=== PATIENT | female | born 1970 | race Caucasian/White ===

== ENCOUNTER 2016-10-27 10:44 | Emergency (ER) | payer OTHER ==
[~2016-10-27] VITALS: Ht 165.1 cm; Wt 74.8 kg
[2016-10-27] MEDS ORDERED: CRESTOR10 M1 PO (11:48)
[2016-10-27] MEDS ORDERED: AMLODIPINE BESYL5 M1 PO (11:48)
--- NOTE | 2016-10-27 12:05 | ED EAR COMPLAINT ---
History of Present Illness General Chief Complaint: Ear Complaints Stated Complaint: "MY EAR WAS BLEEDING THIS AM" Source: patient Exam Limitations: no limitations Vital Signs & Intake/Output Vital Signs & Intake/Output Vital Signs Date Time Temp Pulse Resp B/P Pulse O2 O2 Flow FiO2 Ox Delivery Rate 10/27 1405 80 16 118/82 99 Room Air 10/27 1108 97.0 96 20 129/79 98 Room Air Room Air ED Intake and Output 10/28 0000 10/27 1200 Intake Total Output Total Balance Patient 165 lb Weight Allergies Coded Allergies: Penicillins (Intermediate, RASH 10/27/16) Triage Note: PT TO ED WITH C/O "I WOKE UP WITH BLOOD ON MY PILLOW FROM MY LEFT EAR". PT DENIES PAIN, BUT LEFT EAR FEELS FULL/PRESSURE. Triage Nurses Notes Reviewed? yes HPI: MS. SAGE IS A 46 YO F W/ PMH HTN AND HYPERLIPIDEMIA PRESENTING TO ED FOR L EAR BLEEDING. PT WOKE UP THIS AM, NOTED SHE HAD EAR FULLNESS IN THE BATHROOM AND DESCRIBES IT "HAVING WATER IN MY EAR." PATIENT NOTED SOME BLOOD ON HER PILLOW WHICH CAUSED HER TO BE MORE CONCERNED. PATIENT DENIES RECALLING ITCHING HER EAR IN THE MIDDLE OF THE NIGHT. NO FALLS OR TRAUMA THAT SHE CAN RECALL IN THE PAST MONTH. NO RECENT AIR TRAVEL. PT STATES OVER THE PAST WEEK, SHE'S BEEN HAVING NEARLY DAILY HEADACHES, WHICH RESOLVE W/ MOTRIN OR TYLENOL AT NIGHT. PT STATES SHE DOES NOT NORMALLY GET HEADACHES, AND CERTAINLY NOT ON A REGULAR BASIS. NO FEVER, CHILLS, DECREASED HEARING, EAR PAIN, SOB, COUGH, CHANGES IN VISION OR SORE THROAT. NO ABD PAIN, N/V/D, OR DYSURIA. (TALIA PARK,KOSTA) Reconcile Medications Amlodipine Besylate 5 MG TABLET 1 TAB PO DAILY HEART (Reported) Cefdinir 300 MG CAPSULE 1 CAP PO BID EAR PROBLEMS Ciprofloxacin HCl/Dexameth (Ciprodex Otic Suspension) 0.3 %-0.1 % DROPS.SUSP 4 GTT OT BID EAR PROBLEMS Rosuvastatin Calcium (Crestor) (Unknown Strength) TABLET (Unknown Dose) PO DAILY CHOLESTEROL (Reported) (PEARL PARK,NATA Johnson) Past History Travel History Traveled to [place] past 21 day No Medical History Any Pertinent Medical History? see below for history Neurological: migraine EENT: NONE Cardiovascular: hypertension, hyperlipidemia Respiratory: bronchitis Gastrointestinal: NONE Hepatic: NONE Renal: NONE Musculoskeletal: degen joint disease Psychiatric: NONE Endocrine: NONE Blood Disorders: NONE Cancer(s): NONE [employer]/Reproductive: fibroid Surgical History Surgical History: none, non-contributory Psychosocial History What is your primary language Bruneian Tobacco Use: Quit >30 days ago ETOH Use: denies use (SOCIALLY), occasional use Illicit Drug Use: denies illicit drug use Family History Hx Contributory? No (KOSTA MELGAR MD) Review of Systems Review of Systems Constitutional: Reports: no symptoms. EENTM: Reports: ear redness (L EAR BLEEDING). Respiratory: Reports: no symptoms. Cardiovascular: Reports: no symptoms. GI: Reports: no symptoms. Genitourinary: Reports: no symptoms. Musculoskeletal: Reports: no symptoms. Skin: Reports: no symptoms. Neurological/Psychological: Reports: no symptoms. Hematologic/Endocrine: Denies: bruising, bleeding. Immunologic/Allergic: Reports: no symptoms. All Other Systems: Reviewed and Negative (KOSTA MELGAR MD) Physical Exam Physical Exam General Appearance: well developed/nourished, no apparent distress, alert, awake Head: atraumatic, normal appearance Eyes: Bilateral: normal appearance, PERRL, EOMI. Ears: Left: bleeding, other (BULGING HEMORRHAGIC TM). Right: canal normal, Tympanic normal. Nose: normal inspection Mouth/Throat: normal mouth inspection, pharynx normal Neck: normal inspection, supple, full range of motion, trachea midline Cardiovascular/Respiratory: normal breath sounds, normal peripheral pulses, regular rate/rhythm, no respiratory distress Gastrointestinal: SOFT, NONTENDER Rectal: deferred Back: normal inspection, normal range of motion Neurologic/Psych: no motor/sensory deficits, awake, alert, oriented x 3, normal gait, normal mood/affect Skin: intact, normal color, warm/dry (KOSTA MELGAR MD) Progress Differential Diagnoses I considered the following diagnoses in my evaluation of the patient: OTITIS MEDIA HEMORRHAGIC OTITIS [place] INTRACRANIAL MASS CHOLESTEATOMA OTITIS EXTERNA DIRECT TRAUMA Plan of Care: Orders Procedure Date/time Status CT INT AUD CANALS WO IV CONT 10/[address] INT AUD CANALS W&WO IV CONT 10/[address] HEAD WO IV CONTRAST 10/27 1138 Active PATIENT IS OTHERWISE WELL 46 YO F W/ HTN/HLD. ONGOING ALMOST DAILY HEADACHES OVER THE PAST 2 WEEKS, WHICH IS CONCERNING FOR INTRACRANIAL PROCESS GIVEN HER LACK OF HX OF CHING. HEMORRHAGIC BULGING L TM. NO HX OF TRAUMA THAT PATIENT RECALLS. NO HX OF EASY BLEEDING IN HER OR FAMILY MEMBERS. WILL OBTAIN CT HEAD/ CT AUDITORY CANALS AND RE-ASSESS. AGAIN, PATIENT REMAINS PAIN-FREE. CT HEAD NEGATIVE FOR INTRACRANIAL PATHOLOGY. SMALL BULGING IN CANAL, LIKELY HEMORRHAGIC BULGING NOTED. WILL GIVE CEFDINIR ( GIVEN MILD ALLERGY TO AMOX) AND OTIC CIPRO DROPS FOR POSSIB OTITIS MEDIA. PT RECOMMENDED TO SEE ENT ON SATURDAY. DISCUSSED RISKS OF FLYING SATURDAY (TO [place] FOR VACATION) AND RISKS INCLUDING PAIN AND POSSIBLE RUPTURE OF TM. PT WILL DISCUSS W/ ENT. (TALIA PARK,KOSTA) Diagnostic Imaging: Viewed by Me: CT Scan. Discussed w/RAD: CT Scan. Radiology Impression: No acute intracranial pathology. Nonspecific small lobulated soft tissue density in the deep aspect of the left external auditory canal. No bony erosive changes. Suggest correlation with direct visualization. Initial ED EKG: none (KOSTA MELGAR MD) Departure Departure Time of Disposition: 1351 Disposition: HOME OR SELF CARE Condition: Stable Clinical Impression Primary Impression: Hemorrhagic otitis externa, left ear Qualifiers: Chronicity: acute Qualified Code: H60.322 - Hemorrhagic otitis externa, left ear Referrals: NUVIA BARRON MD (PCP/Family) Departure Forms: Customer Survey General Discharge Information Prescriptions: Current Visit Scripts Cefdinir 1 CAP PO BID #20 CAP Ciprofloxacin HCl/Dexameth (Ciprodex Otic Suspension) 4 GTT OT BID #1 BOT (KOSTA MELGAR MD) Resident Co-Sign Statement Statement: ED Attending supervision documentation- [X] I saw and evaluated the patient. I have also reviewed all the pertinent lab results and diagnostic results. I agree with the findings and the plan of care as documented in the Resident's documentation. [] I have reviewed the ED Record and agree with the Resident's documentation. [] Additions or exceptions (if any) to the Resident's note and plan are summarized below: [] (PEARL PARK,NATA Johnson)
--- NOTE | 2016-10-27 13:17 | CT SCAN REPORT ---
EXAMINATION: CT HEAD WITHOUT CONTRAST CT SCAN OF THE TEMPORAL BONES WITHOUT CONTRAST CLINICAL INFORMATION: Headache and bleeding from left ear. COMPARISON: None. TECHNIQUE: Contiguous axial imaging was performed from the skullbase to vertex without intravenous administration of contrast. Multidetector helical imaging was performed through the temporal bones. DLP: 212.08, 529.16 mGy-cm. FINDINGS: There is no evidence of acute intracranial hemorrhage or territorial infarction. No abnormal mass effect or midline shift is seen. Gruber to white matter differentiation is well preserved. No extra-axial fluid collections are identified. The ventricles are normal in size. There is no abnormal attenuation within the brain parenchyma. The osseous structures and soft tissues are normal. The visualized portions of the paranasal sinuses are well aerated. There is nonspecific lobulated soft tissue density in the deep aspect of the left external auditory canal which measures maximally 0.9 x 0.5 x 0.8 cm in size. No bony erosive changes are seen. The soft tissue abnormality is directly lateral to the tympanic membrane. The right external auditory canal is normal. The tympanic membranes are normal. The ossicular chains are intact bilaterally. The middle ear cavities and mastoid air cells are well aerated. The facial nerves follow a normal course. The inner ear structures and internal auditory canals are normal. A small cochlear cleft is noted anterior to the left oval window in the otic capsule. IMPRESSION: No acute intracranial pathology. Nonspecific small lobulated soft tissue density in the deep aspect of the left external auditory canal. No bony erosive changes. Suggest correlation with direct visualization.
[2016-10-27] MEDS ORDERED: CEFDINIR300 M1 PO (13:57)
[2016-10-27] MEDS ORDERED: CIPRODEX OTIC7.5 ML OT (13:57)
[2016-10-27 14:05] VITALS: BP 118/82
== END 2016-10-27 14:06 ==
LOC: ERH 10:44
DX: H60.322 Hemorrhagic otitis externa, left ear (principal); Z87.891 Personal history of nicotine dependence